=== PATIENT | female | born 1970 | race Caucasian/White ===

== ENCOUNTER 2025-02-07 19:29 | Emergency (ER) | payer SELFPAY ==
--- NOTE | ~2025-02-07 | XR_ITS ---
EXAM: XR knee LT 3V DATE: 02/07/2025 20:12 HISTORY: pain without trauma . COMPARISON: None available. FINDINGS: Normal mineralization. No fracture or dislocation. No lytic or blastic lesion. Mild knee o steoarthritis. Patellar and quadriceps enthesopathy. Amorphous soft tissue calcification adjacent to the lateral condyle. No erosion or periosteal change. Soft tissues within normal limits. IMPRESSION: No acute osseous finding in the right knee. Reviewed, dictated and finalized at location K.
--- OUTSIDE RECORDS SUMMARY | 2025-02-07 19:35 | XMS_ITS | Clinical Summary ---
Author Organization [facility] Address [address] [address] Phone Care Team Providers Care Photo Journalist Name Role Phone Edda Miller MD Primary Care Provider [phone] Allergies Active Allergy Reactions Criticality Noted Date Comments Sulfamethoxazole-Trimethoprim Hives,Rash 2016 Losartan Potassium-Hctz Hives,Rash,Itching 08/06 Latex Hives,Rash 08/02/2017 Medications potassium chloride (KLOR-CON) 20 MEQ Pack Take 20 mEq by mouth 2 times daily. Active simvastatin (ZOCOR) 40 MG Tablet Take 40 mg by mouth daily. Active venlafaxine (EFFEXOR-XR) 75 MG CAPSULE SR 24 HR Take 75 mg by mouth daily. Active meloxicam (MOBIC) 7.5 MG Tablet Take 7.5 mg by mouth daily. Active irbesartan (AVAPRO) 150 MG Tablet Take 150 mg by mouth daily. Active furosemide (LASIX) 40 MG Tablet Take 40 mg by mouth daily. Active metOLazone (ZAROXOLYN) 2.5 MG Tablet Take 2.5 mg by mouth daily. 2 tablets daily Active Liraglutide (VICTOZA SC) 1.2 mg by Subcutaneous route daily. Active glyBURIDE (DIABETA) 5 MG Tablet Take 5 mg by mouth 2 times daily. 2 tablets Active glyBURIDE-metFOR MIN (GLUCOVANCE) 2.5-500 MG Tablet Take 1 Tab by mouth 2 times daily. 2 tablets Active levoFLOXacin (LEVAQUIN) 500 MG Tablet Take 500 mg by mouth daily. Active HYDROcodone-acet aminophen (NORCO) 5-325 MG Tablet Take 1 Tab by mouth every 6 hours as needed for Pain. Active Semaglutide, 1 MG/DOSE, (OZEMPIC, 1 MG/DOSE,) 2 MG/1.5ML Solution Pen-injector by Subcutaneous route once a week. Active losartan (COZAAR) 50 MG Tablet Take 50 mg by mouth daily. Active Cyanocobalamin (VITAMIN B 12 PO) Take by mouth. Activ e amoxicillin-clav ulanate (AUGMENTIN) 875-125 MG TabletIndication s:Acute non-recurrent pansinusitis Take 1 Tab by mouth 2 times daily. 20 Tab 9 Active digoxin (LANOXIN) 125 MCG Tablet Take 125 mcg by mouth daily. 3 Active glyBURIDE-metFOR MIN (GLUCOVANCE) 5-500 MG Tablet Take 2 Tablets by mouth in the morning and at bedtime. 3 Active rosuvastatin (CRESTOR) 40 MG Tablet Take 40 mg by mouth daily. 3 Active dilTIAZem (CARDIZEM CD) 240 MG CAPSULE SR 24 HR Take 240 mg by mouth daily. 3 Active buPROPion (WELLBUTRIN) 150 MG XL tablet Take 150 mg by mouth daily. 3 Active Klor-Con M20 20 MEQ Tablet Controlled Release Take 20 mEq by mouth daily. 3 Active amiodarone (CORDARONE) 200 MG Tablet Take 200 mg by mouth daily. 3 Active Eliquis 5 MG Tablet Take 5 mg by mouth 2 times daily. 3 Active empagliflozin (Jardiance) 25 MG Tablet Take 25 mg by mouth daily. 0 Active naproxen (NAPROSYN) 500 MG Tablet Take 1 Tablet by mouth 2 times daily as needed for Moderate or more severe pain. 20 Tablet 3 Active Additional Information Patient not taking.Reported on 06/13/2024 cloNIDine (CATAPRES TTS) 0.1 MG/24HR PATCH WEEKLY APPLY 1 PATCH TO SKIN ONCE WEEKLY 3 Active ondansetron (ZOFRAN-ODT) 4 MG TABLET DISPERSIBLE Take 1 Tablet by mouth every 8 hours as needed for Nausea - 1st line. 15 Tablet 4 Active Active Problems Problem Noted Date Diagnosed Date Atypical ductal hyperplasia of left breast 08/27 Abscess after procedure 08/02/2017 Type 2 diabetes mellitus without complication Resolved Problems Problem Noted Date Diagnosed Date Resolved Date Breast abscess 08/27/2017 09/17/2017 Family History Medical History Relation Name Comments Diabetes Brother Diabetes Father Diabetes Maternal Aunt No Known Problems Maternal Grandfather Cancer Maternal Grandmother Congestive Heart Failure Maternal Grandmother Diabetes Maternal Grandmother Heart Attack Maternal Grandmother Diabetes Mother Stroke Mother Tuberculosis Mother No Known Problems Other No Known Problems Paternal Grandfather No Known Problems Paternal Grandmother Diabetes Sister Relation Name Status Comments Brother Alive Father Maternal Aunt Alive Maternal Grandfather Maternal Grandmother Mother Other Paternal Grandfather Paternal Grandmother Sister Alive Social History Tobacco Use Types Packs/Day Years Used Date Smoking Tobacco: Former Cigarettes Q uit: 1996 Smokeless Tobacco: Never Tobacco Cessation:Counseling Given: Not Answered Alcohol Use Standard Drinks/Week Comments No 0 (1 standard drink = 0.6 oz pur e alcohol) Comments No Sex and Gender Information Value Date Recorded Sex Assigned at Not on file Legal Sex Female 12:19 AM CDT Gender Identity Not on file Sexual Orientation Not on file Last Filed Vital Signs Vital Sign Reading Time Taken Comments Blood Pressure 139/89 06/13/2024 8:30 PM HARD [employer]AND[employer] SPINNER Pulse 83 06/13/2024 8:30 PM [employer] SPINNER Temperature 36.3 C (97.4 F) 06/13/2024 4:16 PM H[employer] C[employer] SPINNER Respiratory Rate 12 06/13/2024 8:30 PM HARD CAND[employer] SPINNER Oxygen Saturation 94% 06/13/2024 8:30 PM H[employer] CAND[employer] SPINNER Inhaled Oxygen Concentration - - Weight 104.3 kg (230 lb) 06/13/2024 4:16 PM H[employer] CAND[employer] SPINNER Height 170.2 cm (5' 7) 06/13/2024 4:16 PM H[employer] SPINNER Body Mass Index 36.02 06/13/2024 4:16 PM H[employer] SPINNER Plan of Treatment Health Maintenance Due Date Last Done Comments Diabetes: Eye Exam 1968 Diabetes: Foot Exam 1968 Hepatitis C Virus (HCV) Screening 1968 TdaP Immunization 1968 Hepatitis B Immunization (1 of 3 - 19+ 3-dose series) 1987 Pneumococcal Immunization (50+ years) (1 of 2 - PCV) 1987 Pap Smear 1989 Cervical Cancer Screening (CCS) 1998 HPV/Cotest 1998 Cologuard 2013 Colonoscopy 2013 Colorectal Cancer Screening 2013 Immunochemical Fecal Occult Blood 2013 Diabetes: Hemoglobin A1c 12/09/2017 017, 01/11/2017, 08/31/2016 Mammogram 04/17/2018 04/17/2017, 04/05, 04/09/2017 Zoster Immunization (1 of 2) 2018 SARS-COV-2 Immunization ( season) 2024 08/17/2021, 01/14/2021, 12/24/2020 Influenza Immunization (Season Ended) 2025 Diabetes: Nephropathy Screening 06/13/2025 06/13/2024, 02/15/2023, 09/02/2017, Additional history exists Respiratory Syncytial Virus (RSV) Immunization (Adult) (1 - 1-dose 75+ series) 2043 Human Papillomavirus (HPV) Immunization Aged Out No longer eligible based on patient's age to complete this topic Meningococcal Immunization (ACWY) Aged Out No longer eligible based on patient's age to complete this topic Rotavirus Immunization Aged Out No lo nger eligible based on patient's age to complete this topic Procedures Procedure Name Priority Date/Time Associated Diagnosis Comments CMP (COMPREHENSIVE METABOLIC PANEL) STAT 06/13/2024 7:08 PM H[employer] SPINNER HEMOGLOBIN, A1C Routine 06/11/2017 HUANG DIAG BILATERAL DIGITAL W CAD W DEVAUGHN Routine 04/17/2017 from Last 3 Months or Most Recently Relevant to Health Maintenance Results * (ABNORMAL) Comprehensive Metabolic Panel (Cmp) [id number] (06/13/2024 7:08 PM HARD CAND[employer] SPINNER) SODIUM 139 136 - 145 mmol/L 06/13/2024 7:38 PM [employer]INNER [facility] POTASSIUM 3.6 3.5 - 5.1 mmol/L 06/13/2024 7:38 PM [employer] [facility] CHLORIDE 100 98 - 107 mmol/L 06/13/2024 7:38 PM [facility] CO2, VENOUS 26 22 - 30 mmol/L 06/13/2024 7:38 PM [facility] ANION GAP 16.6 <18.0 mmol/L 06/13/2024 7:38 PM [facility] GLUCOSE 204(H) 70 - 99 mg/dL 06/13/2024 7:38 PM [facility] BUN 9(L) 10 - 20 mg/dL 06/13/2024 7:38 PM [facility] CREATININE, BLOOD 0.74 0.60 - 1.00 mg/dL 06/13/2024 7:38 PM [facility] BUN/CREATININE RATIO 12 12 - 20 ratio 06/13/2024 7:38 PM [facility] TOTAL PROTEIN 7.3 6.3 - 8.2 g/dL 06/13/2024 7:38 PM [facility] ALBUMIN 4.0 3.5 - 5.0 g/dL 06/13/2024 7:38 PM [facility] A/G RATIO 1.2 1.0 - 2.2 06/13/2024 7:38 PM [facility] CALCIUM 9.8 8.7 - 10.5 mg/dL 06/13/2024 7:38 PM [facility] T BILI 0.8 0.2 - 1.2 mg/dL 06/13/2024 7:38 PM [facility] SGOT (AST) 14 5 - 34 U/L 06/13/2024 7:38 PM [facility] SGPT (ALT) 25 0 - 55 U/L 06/13/2024 7:38 PM [facility] ALKALINE PHOSPHATASE 79 40 - 150 U/L 06/13/2024 7:38 PM [facility] GFR, ESTIMATED >60 >=60 06/13/2024 7:38 PM [facility] Comment: Creatinine Clearance is the preferred criteria for selecting drug dose adjustments in renally impaired patients. The GFR is provided as additional pertinent clinical information. GFR is reported in mL/min/1.73 sq m. Calculation based on the Chronic Kidney Disease Epidemiology Collaboration (CKD- EPI) equation refit without adjustment for race. GFR, EST. >60 >=60 024 7:38 PM [employer] SPINNER [facility] GFR, EST. NONAFRICAN >60 >=60 06/13/2024 7:38 PM [employer]NER [facility] Blood Venipuncture / Unknown 06/13/2024 7:08 PM [employer] SPINNER 06/13/2024 7:15 PM [employer] us Pradip Nguyen APRN, CNP CHEMISTRY ORDERABLES Fi nal Result [facility] [address] [place] [address] * HEMOGLOBIN, A1C (06/11/2017) HGB-A1C 7.5 % Blood specimen (specimen) Edda Miller MD CHEMISTRY ORDERABLES Edited Res ult - Final * HUANG DIAG BILATERAL DIGITAL W CAD W DEVAUGHN (04/17/2017) Anatomical Region Laterality Modality breast Bilateral Mammography Edda Miller MD IMG MAMMO ORDERABLES Final Resu lt from Last 3 Months or Most Recently Relevant to Health Maintenance Insurance MEDICAID [place] Care Teams Photo Journalist Relationship Specialty Start Date End Date Edda Miller MD [address] [place] [id number] PCP - General 08/02/17
--- OUTSIDE RECORDS SUMMARY | 2025-02-07 19:35 | XMS_ITS | Clinical Summary ---
Author Organization [facility] Address [address] [place] [address] Care Team Providers Care Manager Development Name Role Phone Edda Portillo MD Primary Care Provider Allergies Active Allergy Reactions Criticality Noted Date Comments Latex Hives,Rash Medium 05/10/2017 Losartan Hives,Itching,Rash Medium 08/26/2017 Sulfamethoxazole-Trimethoprim Hives,Rash Medium 2016 Medications Jardiance 25 mg tablet Take 1 tablet (25 mg total) by mouth daily 10/19/2019 Active furosemide (LASIX) 40 mg tablet Take 1 tablet (40 mg total) by mouth daily 10/30/2019 Active glyburide-metfor min (GLUCOVANCE) 2.5-500 mg per tablet Take 1 tablet by mouth 2 (two) times a day Active Klor-Con M20 20 mEq CR tablet Take 1 tablet (20 mEq total) by mouth daily 09/25/2019 Active venlafaxine (EFFEXOR) 75 mg tablet Take 3 tablets (225 mg total) by mouth daily Active apixaban (ELIQUIS) 5 mg tablet Take 1 tablet (5 mg total) by mouth 2 (two) times a day Active tirzepatide (Mounjaro) 2.5 mg/0.5 mL pen injector Inject 0.5 mL (2.5 mg total) under the skin every 7 days On mondays Active digoxin (LANOXIN) 62.5 mcg (0.0625 mg) tablet Take 2 tablets (125 mcg total) by mouth daily Active diltiazem (TIAZAC) 360 mg 24 hr capsule Take 1 capsule (360 mg total) by mouth daily Active amiodarone (PACERONE) 200 mg tablet Take 1 tablet (200 mg total) by mouth daily Active cloNIDine (CATAPRES-TTS) 0.2 mg/[address] 1 patch on the skin once a week Changed on mondays Active rosuvastatin (CRESTOR) 40 mg tablet Take 1 tablet (40 mg total) by mouth nightly Active irbesartan (AVAPRO) 300 mg tablet Take 1 tablet (300 mg total) by mouth daily Active cyanocobalamin (Vitamin B-12) 250 mcg tablet Take 1 tablet (250 mcg total) by mouth daily Active buPROPion XL (WELLBUTRIN XL) 150 mg 24 hr tablet Take 1 tablet (150 mg total) by mouth daily Active pantoprazole DR (PROTONIX) 40 mg EC tablet Take 1 tablet (40 mg total) by mouth daily Active isosorbide mononitrate ER (IMDUR) 30 mg 24 hr tablet Take 1 tablet (30 mg total) by mouth nightly Active Active Problems Problem Noted Date Diagnosed Date Chest pain 12/23/2023 Upper abdominal pain 11/09/2019 Assessment & Plan (11/09/2019 1:54 PM CDT): Pt having epigastric into LUQ pain. She says that this occurs almost daily and can be sharp. Pt says sometimes it feels like there is a rock sitting there. Pt also admits to bloating and dyspepsia. She says when she burps, it is foul smelling and smells like rotted food. Will scheduled EGD. Start on omeprazole and stick with blander, low fat foods. Pt informed to let us know if she has any red flag signs and contact us or go to ER if they are very severe. She verbalized understanding. Dyspepsia 11/09/2019 Assessment & Plan (11/09/2019 1:55 PM CDT): Pt c/o indigestion, bloating, belching. Advised to eat 5 smaller meals and stick with bland, low fat diet. Will start on omeprazole 40mg daily. Chronic idiopathic constipation 11/09/2019 Assessment & Plan (11/09/2019 1:56 PM CDT): Pt has BM about every 3 days. When she does go, it can be hard and usually a large amount. She says it is painful to go because of size of BM and sometimes causes rip in rectal area. Pt says she has tried stool softeners but no relief. Will start on Miralax daily and can also use stool softeners prn along with Miralax. Epigastric pain 11/09/2019 Overview (11/09/2019): Added automatically from request for surgery [id number] Social History Tobacco Use Types Packs/Day Years Used Date Smoking Tobacco: Former Smokeless Tobacco: Never Personal Safety Answer Date Recorded Have you ever been in or are you currently in a harmful physical or emotional relationship or is someone making you feel afraid or unsafe? 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 Gender Identity Not on file Sexual Orientation Not on file Obstetrics History Last Filed Vital Signs Vital Sign Reading Time Taken Comments Blood Pressure 117/65 01/02/2024 3:31 PM CDT Pulse 68 01/02/2024 3:31 PM CDT Temperature 35.8 C (96.5 F) 01/02/2024 10:47 AM CDT Respiratory Rate 14 01/02/2024 3:31 PM CDT Oxygen Saturation 97% 01/02/2024 3:31 PM CDT Inhaled Oxygen Concentration - - Weight 89.4 kg (197 lb) 01/02/2024 10:48 AM CDT Height 170.2 cm (5' 7) 11/09/2019 1:29 PM CDT Body Mass Index 30.85 11/09/2019 1:29 PM CDT Plan of Treatment Health Maintenance Due Date Last Done Comments Breast Cancer Screening-Mammogram 1968 Cervical Cancer Screening 1968 Colon Cancer Screening-Colonoscopy 1968 Depression Screening 1968 Hepatitis C Screening 1968 DTaP/Tdap/Td Vaccine (1 - Tdap) 1979 Hepatitis B Screening 1986 Regular Well Visit/Exam 18-64 1986 Zoster Vaccine (1 of 2) 2018 Covid-19 Vaccine (4 - 2023-2 5 season) 2024 08/17/2021, 01/14/2021, 12/24/2020 Influenza Vaccine (Season Ended) 2025 Pneumococcal vaccine <65 Aged Out No longer eligible based on patient's age to complete this topic Insurance Advance Directives For more information, please contact: [phone] * Full Code (Latest Code Status on File) Date Activated Date Inactivated Comments 01/02/2024 12:15 PM 01/02/2024 8:21 PM Care Teams Manager Development Relationship Specialty Start Date End Date Edda Portillo MD [address] [place] [phone] PCP - General Family Medicine 10/20/19
--- OUTSIDE RECORDS SUMMARY | 2025-02-07 19:35 | XMS_ITS | Referral Summary ---
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
--- NOTE | 2025-02-07 19:40 | ED_ITS ---
HPI - Extremity Injury (Lower) General Chief Complaint: Extremity Injury, Lower Stated Complaint: Left Knee Pain patient presents to the [facility] with complaints of pain to the back of left knee on the outside that began yesterday. Patient reports sharp shooting pain in this area and believe she may have a pinched nerve. Patient also reports some numbness and tingling down the lower leg and pain that shoots down the leg. No medication attempted for symptoms But noted when resting this does relieve some of the pain. Denies swelling, bruising, redness, or rash. Related Data Home Medications ?Medication ?Instructions ?Recorded ?Confirmed ?Last Taken ?Type amiodarone 200 mg tablet mg 02/07/25 Unknown History apixaban 5 mg tablet (Eliquis) mg 02/07/25 Unknown History clonidine 0.2 mg/24 hr weekly 02/07/25 Unknown History transdermal patch digoxin 125 mcg (0.125 mg) tablet 02/07/25 Unknown History diltiazem HCl 360 mg capsule,24 mg PO 02/07/25 Unknown History hr,extended release (Tiadylt ER) empagliflozin 25 mg tablet 25 mg PO DAILY 02/07/25 Unknown History (Jardiance) glyburide 5 mg-metformin 500 mg tablet 02/07/25 Unknown History tablet hydrochlorothiazide 12.5 mg capsule mg 02/07/25 Unknown History irbesartan 300 mg tablet mg 02/07/25 Unknown History isosorbide mononitrate 30 mg mg PO 02/07/25 Unknown History tablet,extended release 24 hr potassium chloride 20 mEq 20 meq PO DAILY 02/07/25 Unknown History tablet,extended release(part/cryst) (Klor-Con M) rosuvastatin 40 mg tablet mg 02/07/25 Unknown History tirzepatide 7.5 mg/0.5 mL mg subcut 02/07/25 Unknown History subcutaneous pen injector (Mounjaro) venlafaxine 75 mg capsule,extended 75 mg PO DAILY 02/07/25 Unknown History release 24 hr (Effexor XR) Allergies Allergy/AdvReac Type Severity Reaction Status Date / Time latex Allergy Severe Hives Verified 02/07/25 19:52 hydrochlorothiazide (From Allergy Intermediate hives Verified 02/07/25 19:52 Hyzaar) losartan (From Hyzaar) Allergy Intermediate hives Verified 02/07/25 19:52 sulfamethoxazole (From Allergy Intermediate hives Verified 02/07/25 19:52 Bactrim) trimethoprim (From Bactrim) Allergy Intermediate hives Verified 02/07/25 19:52 Review of Systems Constitutional: Constitutional: Reports as per HPI, Denies chills, Denies fatigue, Denies fever(s) and Denies weakness Eyes: Eyes: Reports no additional eye complaints ENT: Reports system reviewed and no additional complaints, except as documented Cardiovascular: Cardiovascular: Reports no additional cardiovascular complaints Respiratory: Respiratory: Reports no additional respiratory complaints Gastrointestinal: Gastrointestinal: Reports no additional gastrointestinal complaints Genitourinary: Genitourinary: Reports no additional female genitourinary complaints Musculoskeletal: Musculoskeletal: Reports as per HPI, Reports arthralgias, Denies joint swelling and Reports muscle cramps Integumentary/Breasts: Skin/Breast: Reports as per HPI, Denies pruritus, Denies rash and Denies skin ulcer Neurologic: Reports as per HPI, Denies vertigo, Denies dizziness, Denies syncope, Denies headache(s), Reports numbness and Denies weakness Psychiatric: Psychiatric: Reports no additional psychiatric complaints Endocrine: Endocrine: Reports no additional endocrine complaints Hematologic/Lymphatic: Hematologic/Lymphatic: Reports no additional hematologic/lymphatic complaints Allergic/Immunologic: Allergic/Immunologic: Reports no additional allergic/immunologic complaints Exam Const: General: healthy appearing and no acute distress Nutritional Appearance: well nourished Orientation/consciousness: patient oriented x3 Limitations: no limitations Resp: Effort & Inspection: normal respiratory effort Auscultation: clear to auscultation bilaterally Cardio: Rate: regular rate Rhythm: regular rhythm Skin: General skin exam: normal color Rashes: no rashes Wounds: no wounds Neuro: General: patient oriented x3 Speech: normal speech Gait exam (Neuro): gait abnormal (limited by pain ) Extrem: Left lower extremity: knee Details: normal to inspection, tenderness (posterior lateral knee ), abnormal ROM and knee ligament exam normal; inspection normal, no swelling, no abrasions, no lacerations, no deformity and no unusual warmth Psych: Mental Status: mental status grossly normal Affect: normal affect Attitude: cooperative Course Course Level of Care: Express Care Visit Vital Signs Vital signs: Vital Signs Temperature 98.1 F 02/07/25 19:41 Pulse Rate 87 02/07/25 19:41 Respiratory Rate 16 02/07/25 19:41 Blood Pressure 200/108 H 02/07/25 19:41 Pulse Oximetry 100 02/07/25 19:41 Oxygen Delivery Room Air 02/07/25 19:41 Temperature 98.1 F 02/07/25 19:41 Pulse Rate 87 02/07/25 19:41 Respiratory Rate 16 02/07/25 19:41 Blood Pressure 200/108 H 02/07/25 19:41 Pulse Oximetry 100 02/07/25 19:41 Oxygen Delivery Room Air 02/07/25 19:41 MDM - Extremity Injury (Lower) MDM Narrative Medical decision making narrative: X-rays ordered. With no significant fall or injury likely tendonitis from moving going up and down stairs and hills due to moving with her significant other. Spoke with patient about medications noted given her daily Eliquis will give her Tylenol while in the Express Care. Discharge instructions reviewed with patient, as well as provided in writing per nursing staff. The instructions also include specific and strict return/GO TO THE ER as well as f/u information. All questions have been answered, and the patient deny any further questions with discharge and discharge plan. Differential Diagnosis Differential diagnosis: Likely acute internal derangement of knee and other ( Tendinitis, sprain, arthritis.) Medical Records Attestation: I reviewed the patient's medical records. Imaging Data My impression: no acute fracture, arthritic changes noted. Radiologist's impression: IMPRESSION: No acute osseous finding in the right knee. Reviewed, dictated and finalized at location K. Discharge Plan Discharge Clinical Impression: Acute pain of left knee Patient Disposition: Home Condition: Stable Instructions: Antibiotic Form, Knee Pain (ED), Arthralgia (ED) Additional Instructions: Take the steroids as directed to help with inflammation in the knee. Rest as much as possible for the next 2 days then start gentle [id number] exercises with the knee. May also apply topical Voltaren gel to the area to help with inflammation. Recommended using the heat, stretch, then ice approach. Recommend follow-up with her primary care provider in 1 week if symptoms not improved. Patient Language: Mozambican Prescriptions: New methylprednisolone [Medrol (Marvel)] 4 mg tablets,dose pack See Rx Instructions .ROUTE .COMPLEX Qty: 21 0RF Rx Instructions: for 6 days No Action clonidine 0.2 mg/24 hr patch weekly amiodarone 200 mg tablet isosorbide mononitrate 30 mg tablet extended release 24 hr PO diltiazem HCl [Tiadylt ER] 360 mg capsule,extended release 24 hr PO glyburide-metformin 5-500 mg tablet hydrochlorothiazide 12.5 mg capsule digoxin 125 mcg (0.125 mg) tablet irbesartan 300 mg tablet rosuvastatin 40 mg tablet Eliquis 5 mg tablet Mounjaro 7.5 mg/0.5 mL pen injector SUBCUT venlafaxine [Effexor XR] 75 mg capsule,extended release 24hr 75 mg PO DAILY potassium chloride [Klor-Con M20] 20 mEq tablet,ER particles/crystals 20 meq PO DAILY Jardiance 25 mg tablet 25 mg PO DAILY Follow-up/Referrals: NOEMÍ,MD JULIEN [Non-Staff] - Time of Disposition: 20:22
[2025-02-07 19:41] VITALS: BP 200/108; PULSE 87; RESP 16; TEMP 36.7; O2SAT 100
[2025-02-07] MEDS: ACETAMINOPHEN 500 MG TABLET 1000 MG PO (20:15)
== END 2025-02-07 20:34 | disposition home or self-care (01) ==
PROVIDERS: Emergency Provider Nurse Practitioner Family
DX: M25.562 Pain in left knee (principal)
CPT/HCPCS: 73562; 99203; A9270; G0463